=== PATIENT | female | born 2000 | race Caucasian/White ===

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

== ENCOUNTER 2019-11-24 17:52 | Outpatient (CLI) | payer MEDICAID ==
[~2019-11-24 17:52] MED LIST changes: +IBUP-844 PO; -RANI-515 PO; +RANI-609 PO
--- NOTE | 2019-11-24 18:00 | NUR ---
SAM DINERO presented to unit via ambulation from ED, accompanied by , with c/o DECREASED MOVEMENT and elevated BP. SAM DINERO weighed, gowned, voided, and to bed. EFHM and TOCO applied, VS taken. SAM DINERO oriented to bed controls, call light, TV, heat, and A/C controls.
[2019-11-24 18:20] VITALS: BP 124/74
[2019-11-24 18:23] LABS: BILIRUBIN,URINE NEGATIVE (NEGATIVE); CLARITY,URINE CLOUDY; COLOR,URINE YELLOW; GLUCOSE, URINE (UA) NEGATIVE (NEGATIVE); KETONES,URINE NEGATIVE (NEGATIVE); LEUKOCYTE ESTERASE ,URINE 1+ (NEGATIVE); NITRITE,URINE NEGATIVE (NEGATIVE); PROTEIN,URINE NEGATIVE (NEGATIVE)
[2019-11-24 18:25] VITALS: BP 122/79
[2019-11-24 18:30] VITALS: BP 123/77
[2019-11-24 18:37] LABS: AMORPHOUS SEDIMENT,UR LARGE AMOR PHOSPHATE /LPF; BACTERIA,URINE TRACE /HPF
--- NOTE | 2019-11-24 18:37 | NUR ---
was called with pt's admit c/o's. reviewed monitor tracing. dismissal orders received. will instruct pt to call [facility] in a.m. if cont decreased FM throughout the noc for OB sono in a.m.
[2019-11-24 18:44] VITALS: BP 133/80
--- NOTE | 2019-11-24 18:44 | NUR ---
monitors dc'd. POC reviewed with pt r/t RTC and kick count. 1847- dismissal instructions given, verbalizes understanding. instructed pt to call [facility] in a.m. if cont to have decreased FM throughout the noc. pt ambulated to private vehicle without sx's of distress.
--- NOTE | 2019-11-25 08:07 | Physician Query-Final Dx ---
SCOTT GEORGE 11/25/19 0807: Clinic Account Progress/Dx Physician Query: Please give diagnosis Please include # weeks gestation Date of Service Nov 24, 2019 at 17:52 BRIAN WYLIE MD 11/25/19 0816: Clinic Account Progress/Dx DIAGNOSIS: Diagnosis 37 weeks gestation Decreased movement Reactive NST SCOTT GEORGE Nov 25, 2019 08:07 BRIAN WYLIE MD Nov 25, 2019 08:16
== END 2019-11-24 18:47 | disposition home or self-care (01) ==
LOC: WSo 17:52 → LDRP 17:53 → WSo 18:47
PROVIDERS: ATTEND Family Medicine
DX: O36.8131 Decreased fetal movements, third trimester, fetus 1 (principal); Z3A.37 37 weeks gestation of pregnancy
CPT/HCPCS: 59025; 81000; 87088